=== PATIENT | female | born 1975 | race Caucasian/White ===

== ENCOUNTER 2018-04-07 09:50 | Outpatient (CLI) | payer OTHER | END 2018-04-07 14:14 | disposition home or self-care (01) | LOC: EDBD 09:50 → MAMO-SONO 09:50 | DX: M81.0 Age-related osteoporosis without current pathological fracture (principal); N63.10 Unspecified lump in the right breast, unspecified quadrant; N63.20 Unspecified lump in the left breast, unspecified quadrant; N83.00 Follicular cyst of ovary, unspecified side; N80.8 Other endometriosis; N64.4 Mastodynia; Z12.31 Encounter for screening mammogram for malignant neoplasm of breast ==

== ENCOUNTER → 2018-04-07 | Outpatient (CLI) | payer OTHER | END | disposition home or self-care (01) | LOC: NUCLEAR 10:26 | DX: M81.0 Age-related osteoporosis without current pathological fracture (principal) ==